=== PATIENT | female | born 1990 | race African-American/Black ===

== ENCOUNTER 2020-05-14 15:40 | Outpatient (CLI) | payer OTHER ==
--- NOTE | 2020-05-14 16:36 | ULT ---
ULTRASOUND OBSTETRICAL COMPLETE: DATE: 05/14/2020 HISTORY: 30-year-old female. ICD-10: "O09.892 supervision of other high-risk , second trimester. Comp lete anatomy, size and dates, cervical length" FINDINGS: number: fitch lie: Cephalic Maternal cervix: 3.5 cm. Closed. Placenta: Posterior. No previa. Amniotic fluid volume: SANDRA = 12 cm heart rate: 133 bpm The following anatomy is visualized, with no evidence of anomalies: Head, cerebellum, lateral ventricles, four-chamber heart, stomach, kidneys, cord insertion, bladder, cervical spine, thoracic spine, lumbar spine, sacrum, nose and lips, upper extremities, lower extremities, and three-vessel cord. biometry: Biparietal diameter (BPD): 17.6 cm 30 w 3 d Head circumference (HC): 28.0 cm 30 w 5 d Abdominal circumference (AC): 24.8 cm 29 w 0 d Femur length (FL): 5.8 cm 30 w 2 d Average ultrasound age (AUA): 30 w 1 d Estimated date of delivery (MALLY): 07/22/2020 Estimated weight (EFW): 1427 g +/- 208 g IMPRESSION: 1) Live 3rd trimester intrauterine gestation. 2) Estimated gestational age of 30 weeks, 1 days 3) Vertex lie. 4) no anatomic abnormality identified.
== END 2020-05-14 15:41 | disposition home or self-care (01) ==
LOC: BICULT 15:40
PROVIDERS: ATTEND Family Medicine
DX: O09.893 Supervision of other high risk pregnancies, third trimester (principal); Z3A.30 30 weeks gestation of pregnancy
CPT/HCPCS: 76805

== ENCOUNTER 2020-06-04 09:48 | Outpatient (CLI) | payer OTHER ==
--- NOTE | 2020-06-04 11:05 | ULT ---
ULTRASOUND OBSTETRICAL COMPLETE: DATE: 06/04/2020 HISTORY: Intrauterine growth restriction. 30-year-old female., Third trimester. FINDINGS: number: fitch lie: Cephalic Maternal cervix: Poorly visualized Placenta: Posterior. No placenta previa. Amniotic fluid volume: SANDRA = 13.5cm heart rate: 128 bpm anatomy not evaluated. biometry: Biparietal diameter (BPD): 8.1 cm 32 w 3 d Head circumference (HC): 29.2 cm 32 w 2 d Abdominal circumference (AC): 30.4 cm 34 w 3 d Femur length (FL): 6.5 cm 33 w 5 d Average ultrasound age (AUA): 33 w 2 d Estimated date of delivery (MALLY): 07/21/2020 Estimated weight (EFW): 2263 g +/- 330 g IMPRESSION: 1) Live 3rd trimester intrauterine gestation. 2) Estimated gestational age of 33 weeks, 2 days 3) cephalic lie. 4) SANDRA 13.5 cm
--- NOTE | 2020-06-04 11:11 | ULT ---
Ultrasound Doppler duplex umbilical artery: 06/04/2020 HISTORY: 30-year-old female in third trimester with intrauterine growth restriction TECHNIQUE: Color flow and spectral analysis of umbilical artery. FINDINGS: Peak systolic velocity end-diastolic velocity resisti ve index S/D ratio Near cord insertion: 64.3 cm/s 26.3 cm/s 0.59, 2.4 Mid: 98.4 cm/s 26.3 cm/s 0.73, 3.7 At placenta: 71.1 cm/s 28.2 cm/s 0 .6, 2.5 IMPRESSION: Doppler values as above.
== END 2020-06-04 09:49 | disposition home or self-care (01) ==
LOC: BICULT 09:48
PROVIDERS: ATTEND Family Medicine
DX: O36.5930 Maternal care for other known or suspected poor fetal growth, third trimester, not applicable or unspecified (principal); Z3A.33 33 weeks gestation of pregnancy
CPT/HCPCS: 76815; 93975

== ENCOUNTER 2020-06-18 15:01 | Day surgery (SDC) | payer OTHER ==
[2020-06-18 15:49] VITALS: BP 118/82; TEMP 98.5; BMI 33.5
[2020-06-18 16:06] LABS: Hemoglobin 10.6 g/dL (12.0-16.0); Mean Corpuscular HGB CONC 34.9 g/dL (32.0-36.0); Mean Corpuscular Hemoglobin 29.8 pg (27.0-31.0); Mean Corpuscular Volume 85.5 fL (78.0-98.0); Mean Platelet Volume 8.6 fL (7.4-10.4); Platelet Count 216 thou/uL (130-400); RBC Distribution Width 11.6 % (11.5-14.5); Red Blood Cell (RBC) Count 3.54 mill/uL (4.20-5.40); White Blood Cell (WBC) Count 5.5 thou/uL (4.8-10.8)
[2020-06-18 16:32] LABS: ALT (SGPT) Less than 7 U/L (8-55); AST (SGOT) 10 U/L (5-34); Albumin 3.5 g/dL (3.5-5.0); Alkaline Phosphatase 136 U/L (40-110); Anion Gap 14 mmol/L (10-20); BUN (Urea Nitrogen) 6 mg/dL (7.0-18.7); Bilirubin, Total 0.2 mg/dL (0.2-1.2); Calc. Creatinine Clearance 192 mL/min (70-130); Carbon Dioxide 21 mmol/L (22-29); Chloride 105 mmol/L (98-107); Estimated GFR-MDRD Greater than 90; Globulin 3.5 g/dL (2.4-3.5); Glucose 111 mg/dL (70-105); Potassium 3.6 mmol/L (3.5-5.1); Sodium 136 mmol/L (136-145)
== END 2020-06-18 18:21 | disposition home health service (06) ==
LOC: L&D/OP 15:01
PROVIDERS: ATTEND Family Medicine
DX: O99.89 Other specified diseases and conditions complicating pregnancy, childbirth and the puerperium (principal); R03.0 Elevated blood-pressure reading, without diagnosis of hypertension; Z3A.00 Weeks of gestation of pregnancy not specified; Z88.6 Allergy status to analgesic agent; Z88.8 Allergy status to other drugs, medicaments and biological substances
CPT/HCPCS: 36415; 80053; 82570; 84156; 85027; 99284

== ENCOUNTER 2020-06-22 11:53 | Inpatient (IN) | payer BC, OTHER ==
[2020-06-22] MEDS ORDERED: Carboprost 250 MCG/ML AMP IM PRN (12:11)
[2020-06-22] MEDS ORDERED: Promethazine HCl 25 MG/ML VIAL IM PRN ×3 (12:11→18:07)
[2020-06-22] MEDS ORDERED: HYDROcodone/Acetaminophen 5/325 mg Tablet PO PRN (12:11)
[2020-06-22] MEDS ORDERED: Butorphanol Tartrate 1 MG/ML VIAL SLOW IVP PRN (12:11)
[2020-06-22] MEDS ORDERED: Ondansetron PF 4 MG/2 ML Vial IVP PRN ×2 (12:11→18:07)
[2020-06-22] MEDS ORDERED: hydrALAZINE 20 MG/ML VIAL SLOW IVP PRN ×2 (12:11→18:07)
[2020-06-22] MEDS ORDERED: Misoprostol 200 MCG TAB PR PRN (12:11)
[2020-06-22] MEDS ORDERED: Ibuprofen 800 MG TAB PO PRN (12:11)
[2020-06-22] MEDS ORDERED: Lidocaine 1% (PF) 30 ML VIAL SC PRN (12:11)
[2020-06-22] MEDS ORDERED: NS / Oxytocin 40 units/1000ml 1,000 ML IV PRN (12:11)
[2020-06-22] MEDS ORDERED: Diphenoxylate HCl/Atropine Tablet PO PRN (12:11)
[2020-06-22] MEDS ORDERED: NS w/ Oxytocin 10 units 500 ML IV SCH ×2 (12:15)
[2020-06-22] MEDS ORDERED: Lactated Ringer's 1,000 ML IV SCH (12:15)
[2020-06-22] MEDS ORDERED: Penicillin G Potassium 5 MILL.UNITS in Sodium Chloride 0.9% 100 ML IVPB SCH (12:30)
[2020-06-22] MEDS ORDERED: Fentanyl 4 mcg/Bup 0.1% Cadd 100 ML ONE (12:43)
[2020-06-22 12:45] LABS: Hemoglobin 10.5 g/dL (12.0-16.0); Mean Corpuscular HGB CONC 34.8 g/dL (32.0-36.0); Mean Corpuscular Hemoglobin 29.4 pg (27.0-31.0); Mean Corpuscular Volume 84.6 fL (78.0-98.0); Mean Platelet Volume 9.2 fL (7.4-10.4); Platelet Count 221 thou/uL (130-400); RBC Distribution Width 11.5 % (11.5-14.5); Red Blood Cell (RBC) Count 3.57 mill/uL (4.20-5.40); White Blood Cell (WBC) Count 5.6 thou/uL (4.8-10.8)
[2020-06-22] MEDS ORDERED: Promethazine HCl 25 MG/ML VIAL SLOW IVP PRN (13:27)
[2020-06-22] MEDS ORDERED: Morphine Sulfate 2 MG/ML SYRINGE SLOW IVP PRN (13:27)
[2020-06-22] MEDS ORDERED: PACU-Morphine 4MG/ML VIAL SLOW IVP PRN (13:27)
[2020-06-22] MEDS ORDERED: HYDROmorphone 2 MG/ML VIAL SLOW IVP PRN (13:27)
[2020-06-22] MEDS ORDERED: Meperidine HCl/PF 25 MG/ML VIAL SLOW IVP PRN (13:27)
[2020-06-22] MEDS ORDERED: Ondansetron HCl/PF 4 MG/2 ML Vial IVP PRN (13:27)
[2020-06-22 13:29] LABS: HBSAg Index 0.22 S/CO (0-0.99); Hep B Surf Ag Non-Reactive S/CO (NonReactive); Syphilis Antibody Nonreactive (Nonreactive); Syphilis Antibody Index 0.03 S/CO (<1.00 Non-Reactive)
[2020-06-22 13:42] VITALS: BMI 33.6
[2020-06-22] MEDS ORDERED: Lidocaine 1% (PF) 30 ML VIAL ONE (16:11)
[2020-06-22] MEDS ORDERED: NS / Oxytocin 40 units/1000ml 1,000 ML ONE (16:11)
[2020-06-22] MEDS ORDERED: Penicillin G 2.5 MILL.units 2.5 MILL.UNITS in Premix Bag 1 BAG IVPB SCH (17:00)
[2020-06-22] MEDS ORDERED: Preparation H Ointment 28 GM TUBE PR PRN (18:07)
[2020-06-22] MEDS ORDERED: diphenhydrAMINE 25 MG CAP PO PRN (18:07)
[2020-06-22] MEDS ORDERED: Milk Of Magnesia 30 ML UDCUP PO PRN (18:07)
[2020-06-22] MEDS ORDERED: Bisacodyl 10 MG SUPP PR PRN (18:07)
[2020-06-22] MEDS ORDERED: NS / Oxytocin 40 units/1000ml 1,000 ML IV SCH (18:07)
[2020-06-22] MEDS ORDERED: Lanolin Ointment 7 GM TUBE TOP PRN (18:07)
[2020-06-22] MEDS ORDERED: Ferrous Sulfate 325 MG TAB PO SCH (18:15)
[2020-06-22] MEDS: Docusate Calcium (SURFAK) 240 MG CAP PO SCH (20:17)
[2020-06-22] MEDS: HYDROcodone/Acetaminophen 5/325 mg Tablet PO PRN (20:18)
[2020-06-22] MEDS ORDERED: Adacel (T-DAP) 0.5 ML SYRINGE IM ONE (21:00)
[2020-06-22] MEDS ORDERED: Ibuprofen 800 MG TAB PO SCH (22:00)
--- NOTE | 2020-06-23 00:29 | DN ---
DATE OF PROCEDURE: 06/22/2020 PREOPERATIVE DIAGNOSES: 1. 38-week , spontaneous rupture of membranes. 2. Group B streptococcus colonized. 3. Poor growth. POSTOPERATIVE DIAGNOSES: 1. 38-week , spontaneous rupture of membranes. 2. Group B streptococcus colonized. 3. Poor growth. PROCEDURE PERFORMED: Spontaneous vaginal delivery. ANESTHESIA: Epidural. DESCRIPTION OF EVENTS: I was present for delivery of this 30-year-old black female, G11, P5, now P6 of a viable male on 06/22/2020. Infant delivered in OA presentation over an intact perineum. No nuchal cord was encountered. The remainder of the was delivered uneventfully without difficulties. Cord was clamped x2, and the vigorous was placed on the maternal chest for skin to skin contact. Cord blood was obtained after ligation of the umbilical cord. The placenta was delivered spontaneously and intact shortly thereafter. There were no gross abnormalities noted of the placenta. Three-vessel cord was noted. The placenta was sent to pathology for review. No perineal or vaginal lacerations were seen. EBL: Was 100. She was taken to Recovery in stable condition. Job ID: [id number]
[2020-06-23] MEDS: HYDROcodone/Acetaminophen 5/325 mg Tablet PO PRN ×4 (00:39→21:33)
[2020-06-23] MEDS: Ibuprofen 800 MG TAB PO SCH ×3 (04:15→21:32)
[2020-06-23] MEDS: Ferrous Sulfate 325 MG TAB PO SCH ×2 (09:48→17:42)
[2020-06-23] MEDS: Docusate Calcium (SURFAK) 240 MG CAP PO SCH ×2 (09:49→21:32)
[2020-06-23] MEDS: Prenatal Vitamin 1 TAB PO SCH (09:49)
[2020-06-23 14:28] LABS: SARS-CoV-2 MS2 Positive; SARS-CoV-2 N Gene Negative; SARS-CoV-2 S Gene Negative; SARS-CoV-2 by NAA Not Detected (NotDetected); SARS-CoV-2 orf1ab Negative
[2020-06-24] MEDS: HYDROcodone/Acetaminophen 5/325 mg Tablet PO PRN ×3 (02:23→14:11)
[2020-06-24] MEDS: Ibuprofen 800 MG TAB PO SCH ×2 (04:20→14:11)
[2020-06-24 08:23] VITALS: BP 119/66; TEMP 97.9
[2020-06-24] MEDS: Prenatal Vitamin 1 TAB PO SCH (08:25)
[2020-06-24] MEDS: Docusate Calcium (SURFAK) 240 MG CAP PO SCH (08:25)
[2020-06-24] MEDS: Ferrous Sulfate 325 MG TAB PO SCH (14:15)
== END 2020-06-24 17:25 | disposition home or self-care (01) | DRG 807 ==
LOC: L&D/OP 11:53 → L&D-LIB 12:07 → 3SW 19:20
PROVIDERS: ADMIT Family Medicine; ATTEND Family Medicine
PROC: 10E0XZZ Delivery of Products of Conception, External Approach (ICD-10-PCS; principal; 2020-06-22)
DX: O99.824 Streptococcus B carrier state complicating childbirth (principal); Z37.0 Single live birth; O36.5930 Maternal care for other known or suspected poor fetal growth, third trimester, not applicable or unspecified; Z3A.38 38 weeks gestation of pregnancy; Z11.59 Encounter for screening for other viral diseases
CPT/HCPCS: 36415; 51702; 85027; 86780; 86850; 86900; 86901; 87340; 87635; 88307; J0595; J2001; J2540; J3490; U0003